=== PATIENT | female | born 1970 | race Caucasian/White ===

== ENCOUNTER 2022-06-10 18:32 | Emergency (ER) | payer MEDICAID ==
[~2022-06-10] VITALS: Ht 152.4 cm; Wt 118.0 kg
[~2022-06-10 18:32] MED LIST: MONT10TA21 PO; PRED1TAB PO
[2022-06-10 20:24] LABS: BASOPHILS % 0.6 % (0.0-2.0); EOSINOPHILS % 5.7 % (0.0-5.0); HEMATOCRIT. 41.4 % (36.0-48.0); HEMOGLOBIN. 14.1 g/dL (12.0-16.0); LYMPHOCYTES % 30.2 % (20.0-50.0); MEAN CORPUSCULAR HEMOGLOBIN 29.8 pg (28.0-32.0); MEAN CORPUSCULAR VOLUME 87.4 fL (81.0-99.0); MEAN PLATELET VOLUME 7.8 fl (7.4-10.4); MONOCYTES % 6.4 % (2.0-8.0); NEUTROPHILS % 57.1 % (40.0-76.0); PLATELET 321 x1000/uL (130-400); RED BLOOD CELL COUNT 4.73 mill/uL (4.2-5.4); RED CELL DISTRIBUTION WIDTH 14.3 % (11.6-14.6)
[2022-06-10 20:29] LABS: CHLORIDE 103 mEq/L (98-107)
[2022-06-10] MEDS ORDERED: KETOROLAC 15MG/ML VIAL IV ONE (20:30)
[2022-06-10] MEDS ORDERED: SODIUM CHLORIDE 0.9% 1,000 ML IV ONE (20:30)
[2022-06-10 20:32] LABS: HCG SCREEN NEGATIVE
[2022-06-10 20:39] LABS: ETHANOL BLOOD < 10 mg/dL
[2022-06-10] MEDS ORDERED: BACL-141 MT (23:00)
[2022-06-10] MEDS ORDERED: LIDO700A15 TP (23:00)
[2022-06-10] MEDS ORDERED: LIDOCAINE 5% PATCH TOP SCH (23:15)
[2022-06-10 23:34] VITALS: BP 160/104
== END 2022-06-10 23:35 | disposition home or self-care (01) ==
LOC: ER 18:32
DX: M79.10 Myalgia, unspecified site (principal); R20.2 Paresthesia of skin; K80.20 Calculus of gallbladder without cholecystitis without obstruction; N20.0 Calculus of kidney; I10 Essential (primary) hypertension; E66.9 Obesity, unspecified; J45.909 Unspecified asthma, uncomplicated; Z68.43 Body mass index [BMI] 50.0-59.9, adult; Z98.890 Other specified postprocedural states; Z88.0 Allergy status to penicillin
CPT/HCPCS: 36415; 74176; 80053; 80320; 83690; 84703; 85025; 96361; 96374; 99284; J1885; J7030; G0480

== ENCOUNTER 2024-02-15 13:22 | Emergency (ER) | payer MEDICAID ==
[~2024-02-15] VITALS: Ht 157.5 cm; Wt 120.0 kg
[~2024-02-15 13:22] MED LIST changes: +BACL-141 MT; +LIDO700A15 TP; +MONT-46 PO; -MONT10TA21 PO
[2024-02-15 13:52] VITALS: O2SAT 96
[2024-02-15] MEDS: HYDROCODONE/ACETAMINOPHEN 5/325MG TABLET PO ONE (15:16)
[2024-02-15] MEDS: KETOROLAC 30MG/ML VIAL IM ONE (15:16)
[2024-02-15] MEDS ORDERED: IBUP-2030 MT (18:50)
[2024-02-15 18:56] VITALS: BP 153/95; PULSE 73; RESP 18; TEMP 97.8
== END 2024-02-15 18:58 | disposition home or self-care (01) ==
LOC: ER 13:22
DX: N20.0 Calculus of kidney (principal); M54.9 Dorsalgia, unspecified; J45.909 Unspecified asthma, uncomplicated; Z98.890 Other specified postprocedural states; Z88.0 Allergy status to penicillin
CPT/HCPCS: 99285; 72131; 81025; 96372; J1885